=== PATIENT | male | born 1975 | race African-American/Black ===

== ENCOUNTER → 2017-04-17 | Outpatient (CLI) | payer BC ==
[~2017-04-17] MED LIST: ASPI81TA28 PO; IBUP-1050 PO; PANT40TA PO
== END | disposition home or self-care (01) ==
LOC: C.PATHSPEC 16:54
PROVIDERS: ATTEND Plastic Surgery
DX: D17.9 Benign lipomatous neoplasm, unspecified (principal)

== ENCOUNTER → 2018-03-09 | Outpatient (CLI) | payer BC, OTHER ==
[2018-03-09 17:07] LABS: ALBUMIN 4.2 gm/dl (3.4-5.0); ALT/SGPT 36 U/L (12-78); AST/SGOT 19 U/L (15-37); BLOOD UREA NITROGEN 16 mg/dl (7-18); CALCIUM 8.8 mg/dl (8.5-10.1); CARBON DIOXIDE 31 mmol/L (21-32); CREATININE 1.05 mg/dl (0.60-1.40); GLUCOSE 74 mg/dl (70-99); SODIUM 138 mmol/L (136-145)
[2018-03-09 17:17] LABS: ALKALINE PHOSPHATASE 48 U/L (45-117); TOTAL PROTEIN 7.5 gm/dl (6.4-8.2)
[2018-03-10 06:28] LABS: HEMOGLOBIN A1C 5.8 % (4.5-5.6)
== END | disposition home or self-care (01) ==
LOC: C.LAB1850 16:03
PROVIDERS: ATTEND Physician Assistant
DX: R35.1 Nocturia (principal)